=== PATIENT | female | born 1950 | race Caucasian/White ===

== ENCOUNTER 2017-11-21 01:26 | Observation (INO) | payer OTHER ==
[~2017-11-21] VITALS: Ht 160 cm; Wt 62.3 kg
[2017-11-21 01:39] VITALS: Ht 160 cm; Wt 62.3 kg
[2017-11-21 02:20] LABS: BASOPHIL % 1.4 % (0-2); PLATELET COUNT 287 x10^3mcL (130-400)
[2017-11-21 02:51] LABS: CALCIUM 9.2 mg/dL (8.5-10.1); CARBON DIOXIDE 26.1 mmol/L (21-32); CHLORIDE SERUM 106 mmol/L (98-107); CREATININE SERUM 0.8 mg/dL (0.6-1.0); GFR1 > 60 mL/min; GLUCOSE SERUM 158 mg/dL (74-106); POTASSIUM SERUM 3.8 mmol/L (3.5-5.1); SODIUM SERUM 142 mmol/L (136-145)
[2017-11-21 02:56] LABS: ALBUMIN 3.6 g/dL (3.4-5.0); ALKALINE PHOSPHATASE 97 U/L (46-116); ALT/SGPT 23 U/L (14-59); AST/SGOT 15 U/L (15-37); BILIRUBIN TOTAL 0.33 mg/dL (0.20-1.00); LIPASE 95 IU/L (73-393); TOTAL PROTEIN, SERUM 7.2 g/dL (6.4-8.2)
[2017-11-21] MEDS ORDERED: LEVOTHYROXIN0.025 M2 PO ×2 (03:54→03:57)
[2017-11-21] MEDS ORDERED: LISINOPRIL10 MG PO (03:54)
[2017-11-21] MEDS ORDERED: NOR5 PO (03:54)
[2017-11-21] MEDS ORDERED: SIMVASTATIN20 M1 PO (03:54)
[2017-11-21] MEDS ORDERED: D3-50001 TAB PO (03:55)
[2017-11-21] MEDS ORDERED: GOOD SENSE OMEP20 MG PO (03:55)
[2017-11-21] MEDS ORDERED: CARAFATE1 GM PO (03:56)
[2017-11-21] MEDS ORDERED: IBUPROFEN400 MG PO (03:56)
[2017-11-21] MEDS ORDERED: ATIVAN0.5 M1 PO (03:57)
[2017-11-21] MEDS ORDERED: ALENDRONATE SOD70 M2 PO (03:58)
[2017-11-21 05:09] VITALS: BP 148/77
[2017-11-21 05:54] LABS: T3 TOTAL 1.03 ng/mL
[2017-11-21 05:56] LABS: FREE T4 1.05 ng/dL (0.76-1.46); FREE THYROXINE INDEX 2.8 ug/dL (1.4-4.5); T4(THYROXINE) 8.1 ug/dL (4.7-13.3)
[2017-11-21 07:30] LABS: BASOPHIL % 0.3 % (0-2); PLATELET COUNT 251 x10^3mcL (130-400); RED CELL DISTRIBUTION WIDTH 12.9 % (11.5-14.5)
[2017-11-21 08:12] LABS: AMYLASE 45 U/L (25-115); CALCIUM 8.7 mg/dL (8.5-10.1); CARBON DIOXIDE 27.9 mmol/L (21-32); CHLORIDE SERUM 107 mmol/L (98-107); CHOLESTEROL 175 mg/dL (<200); CHOLESTEROL/HDL RATIO 4.5; CREATININE SERUM 0.7 mg/dL (0.6-1.0); GFR1 > 60 mL/min; GLUCOSE SERUM 112 mg/dL (74-106); HDL CHOLESTEROL 39 mg/dL (40-60); MAGNESIUM 2.1 mg/dL (1.8-2.4); PHOSPHOROUS 3.6 mg/dL (2.5-4.9); POTASSIUM SERUM 3.6 mmol/L (3.5-5.1); SODIUM SERUM 140 mmol/L (136-145); TRIGLYCERIDES 118 mg/dL (<150)
[2017-11-21 09:04] VITALS: BP 127/68
[2017-11-21 12:16] LABS: microscopic required? NO
[2017-11-21 12:27] LABS: urine erythrocyte NEGATIVE (NEGATIVE)
[2017-11-21 12:36] LABS: AMPHETAMINE QUAL UR NONE DETECTED (NEG <=1000)
[2017-11-21 12:59] VITALS: BP 123/63
[2017-11-21 16:10] VITALS: BP 109/60
[2017-11-21 20:43] VITALS: BP 126/69
[2017-11-22 05:50] VITALS: BP 109/56
[2017-11-22 06:35] LABS: BASOPHIL % 0.4 % (0-2); PLATELET COUNT 221 x10^3mcL (130-400); RED CELL DISTRIBUTION WIDTH 13.2 % (11.5-14.5)
[2017-11-22 07:04] LABS: CARBON DIOXIDE 27.5 mmol/L (21-32); CHLORIDE SERUM 110 mmol/L (98-107); CREATININE SERUM 0.7 mg/dL (0.6-1.0); GFR1 > 60 mL/min; GLUCOSE SERUM 91 mg/dL (74-106); PHOSPHOROUS 2.9 mg/dL (2.5-4.9); POTASSIUM SERUM 3.7 mmol/L (3.5-5.1); SODIUM SERUM 141 mmol/L (136-145)
[2017-11-22 07:55] LABS: MAGNESIUM 2.6 mg/dL (1.8-2.4)
[2017-11-22 09:18] VITALS: BP 122/72
[2017-11-22 13:33] VITALS: BP 108/56
[2017-11-22 16:39] VITALS: BP 98/60
[2017-11-22 22:06] VITALS: BP 105/67
[2017-11-23 06:04] VITALS: BP 107/57
[2017-11-23 07:00] LABS: CALCIUM 8.1 mg/dL (8.5-10.1); CARBON DIOXIDE 28.1 mmol/L (21-32); CHLORIDE SERUM 110 mmol/L (98-107); CREATININE SERUM 0.7 mg/dL (0.6-1.0); GFR1 > 60 mL/min; GLUCOSE SERUM 80 mg/dL (74-106); POTASSIUM SERUM 3.6 mmol/L (3.5-5.1); SODIUM SERUM 144 mmol/L (136-145)
[2017-11-23 07:53] LABS: BASOPHIL % 0.7 % (0-2); PLATELET COUNT 212 x10^3mcL (130-400); RED CELL DISTRIBUTION WIDTH 13.2 % (11.5-14.5)
[2017-11-23 09:32] VITALS: BP 117/67
[2017-11-23] MEDS ORDERED: GOOD SENSE OMEP20 MG PO (09:58)
[2017-11-23] MEDS ORDERED: CARAFATE1 GM PO (09:58)
[2017-11-23] MEDS ORDERED: SIMETHICONE80 MG CH (09:59)
[2017-11-23] MEDS ORDERED: COLACE100 MG PO (10:02)
[2017-11-23] MEDS ORDERED: LEVSIN-SL0.125 MG PO (11:14)
[2017-11-23 11:34] VITALS: BP 117/67
[2017-11-23] MEDS ORDERED: LIPITOR40 MG PO (12:10)
[2017-11-23 13:20] VITALS: BP 130/67
== END 2017-11-23 14:12 | disposition home or self-care (01) | DRG 393 ==
LOC: ED 01:26 → DU 03:29
PROVIDERS: Emergency Medicine; Family Medicine; Internal Medicine
PROC: 0DB68ZX Excision of Stomach, Via Natural or Artificial Opening Endoscopic, Diagnostic (ICD-10-PCS; principal; 2017-11-21 12:15)
PROC: 0DBM8ZX Excision of Descending Colon, Via Natural or Artificial Opening Endoscopic, Diagnostic (ICD-10-PCS; 2017-11-21 12:15)
DX: K55.031 Focal (segmental) acute (reversible) ischemia of large intestine (principal); N17.0 Acute kidney failure with tubular necrosis; K29.70 Gastritis, unspecified, without bleeding; K20.8 Other esophagitis; M54.5 Low back pain; I10 Essential (primary) hypertension; R73.03 Prediabetes; E78.5 Hyperlipidemia, unspecified; E03.9 Hypothyroidism, unspecified
CPT/HCPCS: 43235; 45378; 84439; G0378; J1200; J1610; J1885; J2250; J2270; J2310; J2405; J3010; J3490; J7030; Q0092; Q9967

== ENCOUNTER 2019-02-07 00:20 | Emergency (ER) | payer OTHER ==
[~2019-02-07] VITALS: Ht 162.6 cm; Wt 63.6 kg
[~2019-02-07 00:20] MED LIST: ALENDRONATE SOD70 M2 PO; ATIVAN0.5 M1 PO; CARAFATE1 GM PO; COLACE100 MG PO; D3-50001 TAB PO; GOOD SENSE OMEP20 MG PO; IBUPROFEN400 MG PO; LEVOTHYROXIN0.025 M2 PO; LEVSIN-SL0.125 MG PO; LIPITOR40 MG PO; LISINOPRIL10 MG PO; NOR5 PO; SIMETHICONE80 MG CH; SIMVASTATIN20 M1 PO
[2019-02-07 01:29] VITALS: BP 140/91
== END 2019-02-07 01:29 | disposition home or self-care (01) ==
LOC: ED 00:20
DX: H10.9 Unspecified conjunctivitis (principal); I10 Essential (primary) hypertension; E03.9 Hypothyroidism, unspecified; E78.00 Pure hypercholesterolemia, unspecified; G89.29 Other chronic pain; Z98.890 Other specified postprocedural states; Z90.710 Acquired absence of both cervix and uterus; Z88.8 Allergy status to other drugs, medicaments and biological substances